=== PATIENT | female | born 1955 | race Caucasian/White ===

== ENCOUNTER 2025-02-27 00:56 | Inpatient (IN) | payer OTHER, MEDICARE ==
[~2025-02-27] VITALS: Ht 162.6 cm; Wt 70.8 kg
[2025-02-27] VITALS (7 sets, daily range): BP systolic 103–140; BP diastolic 38–86; PULSE 60–84; RESP 16–20; TEMP 36.3–36.7; O2SAT 97–100
[2025-02-27] MEDS ORDERED: LOSA25TA26 PO (01:29)
[2025-02-27] MEDS ORDERED: RIVA10TA PO (01:30)
[2025-02-27] MEDS: ONDANSETRON HCL 4MG/2ML INJ IV ONE (01:45)
[2025-02-27] MEDS: SODIUM CHLORIDE 0.9% 1,000 ML IV ONE (02:18)
[2025-02-27 02:35] LABS: BASOPHILS % 0.1 % (0.0-2.0); EOSINOPHILS % 0.5 % (0.0-5.0); HEMATOCRIT. 40.1 % (36.0-48.0); HEMOGLOBIN. 13.2 g/dL (12.0-16.0); LYMPHOCYTES % 8.1 % (20.0-50.0); MEAN PLATELET VOLUME 6.5 fl (7.4-10.4); MONOCYTES % 6.0 % (2.0-8.0); NEUTROPHILS % 85.3 % (40.0-76.0); PLATELET 323 x1000/uL (130-400); RED BLOOD CELL COUNT 4.42 mill/uL (4.2-5.4); RED CELL DISTRIBUTION WIDTH 13.5 % (11.6-14.6)
[2025-02-27 02:40] LABS: INR 1.0
[2025-02-27 02:47] LABS: CREATININE 0.6 mg/dL (0.6-1.0); UREA NITROGEN BLOOD 7 mg/dL (9-23)
[2025-02-27 02:48] LABS: TROPONIN I HIGH SENSITIVITY 7 ng/L (3.0-34)
[2025-02-27 02:49] LABS: ASPARTATE AMINOTRANSFERASE 15 IU/L (<34)
[2025-02-27 02:50] LABS: BILIRUBIN DIRECT 0.1 mg/dL (<=3.0); BILIRUBIN TOTAL 0.4 mg/dL (0.1-1.0); PROTEIN TOTAL 7.0 g/dL (6.0-8.3)
[2025-02-27] MEDS: SODIUM CHLORIDE 0.9% (SEPSIS BOLUS) IV NR (03:19)
[2025-02-27] MEDS: PIPERACILLIN/TAZO 3.375G/50ML 50 ML IV NR (03:24)
[2025-02-27 03:50] LABS: CLARITY URINE TURBID (CLEAR); COLOR URINE DARK YELLOW (YELLOW); GLUCOSE URINE NEGATIVE (NEGATIVE); KETONES URINE TRACE (NEGATIVE); LEUKOCYTE ESTERASE URINE 3+ (NEGATIVE); NITRITE URINE POSITIVE (NEGATIVE); OCCULT BLOOD URINE 1+ (NEGATIVE); PH URINE 5.5 (4.5-8.0); PROTEIN URINE 1+ (NEGATIVE); SPECIFIC GRAVITY URINE 1.023 (1.005-1.030); UROBILINOGEN URINE 1.0 E.U./dL (0.2-1.0)
[2025-02-27] MEDS: VANCOMYCIN 1G PREMIX 200 ML IV NR (04:10)
[2025-02-27 04:42] LABS: TROPONIN I HIGH SENSITIVITY 7 ng/L (3.0-34)
[2025-02-27 04:45] LABS: SQUAMOUS EPITHELIAL CELL URINE 1+ /lpf (RARE/1+)
[2025-02-27 04:46] LABS: WBC URINE TNTC /hpf (0-2)
[2025-02-27 04:50] LABS: BACTERIA URINE 4+; RBC URINE 0-2 /hpf (0-2)
[2025-02-27 04:51] LABS: CALCIUM OXALATE CRYSTALS URINE 1+ /lpf
[2025-02-27 04:52] LABS: YEAST URINE 1+
[2025-02-27] MEDS ORDERED: IOHEXOL-350 100 ML BOTTLE ONE (06:19)
[2025-02-27] MEDS ORDERED: MAGNESIUM/ALUMINUM HYDROXIDE/SIMETHICONE 30ML UDC PO PRN (09:30)
[2025-02-27] MEDS ORDERED: CLONIDINE 0.1MG TABLET PO PRN (09:30)
[2025-02-27] MEDS ORDERED: ONDANSETRON HCL 4MG/2ML INJ IV PRN (09:30)
[2025-02-27] MEDS ORDERED: HYDROCODONE/ACETAMINOPHEN 5/325MG TABLET PO PRN (09:30)
[2025-02-27] MEDS: ENOXAPARIN 40MG/0.4ML SYR SUBCUT SCH (10:06)
[2025-02-27] MEDS: FLUCONAZOLE 100MG TABLET PO SCH (10:06)
[2025-02-27] MEDS: SODIUM CHLORIDE 0.9% 1,000 ML IV SCH (10:07)
[2025-02-27 10:57] LABS: *AMPHETAMINES SCREEN URINE NEGATIVE (NEGATIVE); *BARBITURATES SCREEN URINE NEGATIVE (NEGATIVE); *BENZODIAZEPINES SCREEN URINE NEGATIVE (NEGATIVE); *COCAINE SCREEN URINE NEGATIVE (NEGATIVE); CANNABINOID URINE SCREEN NEGATIVE (NEGATIVE); ECSTASY MDMA SCREEN URINE NEGATIVE (NEGATIVE); METHADONE URINE SCREEN NEGATIVE (NEGATIVE); OPIATES URINE SCREEN NEGATIVE (NEGATIVE); PHENCYCLIDINE URINE SCREEN NEGATIVE (NEGATIVE)
[2025-02-27 13:16] LABS: CLARITY URINE CLEAR (CLEAR); COLOR URINE YELLOW (YELLOW); GLUCOSE URINE NEGATIVE (NEGATIVE); KETONES URINE NEGATIVE (NEGATIVE); LEUKOCYTE ESTERASE URINE 1+ (NEGATIVE); NITRITE URINE NEGATIVE (NEGATIVE); OCCULT BLOOD URINE NEGATIVE (NEGATIVE); PH URINE 5.5 (4.5-8.0); PROTEIN URINE NEGATIVE (NEGATIVE); SPECIFIC GRAVITY URINE 1.033 (1.005-1.030); UROBILINOGEN URINE 0.2 E.U./dL (0.2-1.0)
[2025-02-27 13:35] LABS: BACTERIA URINE TRACE; RBC URINE 0-2 /hpf (0-2); SQUAMOUS EPITHELIAL CELL URINE 1+ /lpf (RARE/1+); YEAST URINE RARE
[2025-02-27] MEDS: PIPERACILLIN/TAZO 3.375G/50ML 50 ML IV SCH (13:53)
[2025-02-27 17:35] LABS: TROPONIN I HIGH SENSITIVITY 8 ng/L (3.0-34)
[2025-02-27] MEDS ORDERED: ZOLPIDEM TARTRATE 5MG TABLET PO PRN (21:00)
[2025-02-28] VITALS: BP 136/6; PULSE 68; RESP 20; TEMP 36.7; O2SAT 99
[2025-02-28 00:07] LABS: TROPONIN I HIGH SENSITIVITY 9 ng/L (3.0-34)
[2025-02-28 04:00] VITALS: BP 132/58; PULSE 63; RESP 18; TEMP 36.4; O2SAT 97
[2025-02-28 07:14] LABS: BASOPHILS % 1.0 % (0.0-2.0); EOSINOPHILS % 6.3 % (0.0-5.0); HEMATOCRIT. 33.9 % (36.0-48.0); HEMOGLOBIN. 11.2 g/dL (12.0-16.0); LYMPHOCYTES % 20.1 % (20.0-50.0); MEAN PLATELET VOLUME 7.7 fl (7.4-10.4); MONOCYTES % 7.5 % (2.0-8.0); NEUTROPHILS % 65.1 % (40.0-76.0); PLATELET 265 x1000/uL (130-400); RED BLOOD CELL COUNT 3.78 mill/uL (4.2-5.4); RED CELL DISTRIBUTION WIDTH 13.6 % (11.6-14.6)
[2025-02-28 07:32] LABS: CREATININE 0.6 mg/dL (0.6-1.0)
[2025-02-28 07:33] LABS: UREA NITROGEN BLOOD < 5 mg/dL (9-23)
[2025-02-28 08:00] VITALS: BP 136/82; PULSE 64; RESP 18; TEMP 36.7; O2SAT 97
[2025-02-28] MEDS: PANTOPRAZOLE SODIUM 40 MG/VIAL IV SCH (10:09)
[2025-02-28 12:00] VITALS: BP 127/82; PULSE 61; RESP 20; TEMP 36.2; O2SAT 99
[2025-02-28 16:00] VITALS: BP 129/74; PULSE 18; PULSE 74; RESP 18; TEMP 36.4; O2SAT 95; O2SAT 97
[2025-02-28 20:08] VITALS: BP 120/54; PULSE 64; RESP 18; TEMP 36.9; O2SAT 99
[2025-02-28] MEDS: ACETAMINOPHEN 325MG TABLET PO PRN (23:21)
[2025-03-01] VITALS (7 sets, daily range): BP systolic 118–141; BP diastolic 56–86; PULSE 60–86; RESP 18–19; TEMP 36.1–36.9; O2SAT 95–99
[2025-03-01 07:25] LABS: CREATININE 0.5 mg/dL (0.6-1.0); UREA NITROGEN BLOOD < 5 mg/dL (9-23)
[2025-03-01 07:28] LABS: BASOPHILS % 0.9 % (0.0-2.0); EOSINOPHILS % 6.9 % (0.0-5.0); HEMATOCRIT. 33.9 % (36.0-48.0); HEMOGLOBIN. 11.4 g/dL (12.0-16.0); LYMPHOCYTES % 23.0 % (20.0-50.0); MEAN PLATELET VOLUME 6.6 fl (7.4-10.4); MONOCYTES % 9.3 % (2.0-8.0); NEUTROPHILS % 59.9 % (40.0-76.0); PLATELET 303 x1000/uL (130-400); RED BLOOD CELL COUNT 3.79 mill/uL (4.2-5.4); RED CELL DISTRIBUTION WIDTH 13.2 % (11.6-14.6)
[2025-03-01] MEDS ORDERED: FLUC100T42 MT (10:42)
[2025-03-01] MEDS ORDERED: LEVO750T68 MT (10:42)
[2025-03-01] MEDS ORDERED: CLON2TAB21 MT (14:23)
[2025-03-01] MEDS ORDERED: NITR100C MT (15:44)
[2025-03-01] MEDS: MEROPENEM 1G/100ML 100 ML IV NR (16:30)
[2025-03-02] MEDS ORDERED: FAMOTIDINE 20MG/2ML VIAL IV SCH (09:00)
== END 2025-03-01 20:35 | disposition home health service (06) | DRG 871 ==
LOC: ER 00:56 → 7WST 04:20 → EDBEDREQ 04:41 → EDBEDREQTM 04:41
PROVIDERS: ADMIT Internal Medicine; ATTEND Internal Medicine
DX: A41.9 Sepsis, unspecified organism (principal); G92.8 Other toxic encephalopathy; R65.21 Severe sepsis with septic shock; E87.20 Acidosis, unspecified; Z20.822 Contact with and (suspected) exposure to COVID-19; I10 Essential (primary) hypertension; E05.80 Other thyrotoxicosis without thyrotoxic crisis or storm; N30.90 Cystitis, unspecified without hematuria; K57.30 Diverticulosis of large intestine without perforation or abscess without bleeding; Z99.3 Dependence on wheelchair; Z90.710 Acquired absence of both cervix and uterus; Z79.01 Long term (current) use of anticoagulants; Z79.899 Other long term (current) drug therapy; Z90.49 Acquired absence of other specified parts of digestive tract
CPT/HCPCS: 36415; 71045; 71275; 74177; 80048; 80076; 80305; 81003; 83605; 83880; 84145; 84443; 84484; 85025; 85379; 86850; 86900; 87077; 87186; 87426; 93005; 93970; 96361; 96365; 96368; 97162; 99291; A4606; J1650; J2185; J2470; J2543; J3373; J7030; Q9967